=== PATIENT | female | born 1940 | race Caucasian/White ===

== ENCOUNTER → 2016-06-03 | Outpatient (CLI) | payer OTHER ==
[~2016-06-03] MED LIST: ACET-1257 PO; ASPCH81X PO; CZR50 PO; FLV400 PO; METF-384 PO; MGNO400 PO; PLV75 PO; PRVC/40 PO
== END | disposition home or self-care (01) ==
LOC: C.MAMM 10:35
PROVIDERS: ATTEND Internal Medicine
DX: M81.0 Age-related osteoporosis without current pathological fracture (principal); M85.88 Other specified disorders of bone density and structure, other site

== ENCOUNTER → 2016-06-03 | Outpatient (CLI) | payer OTHER ==
--- NOTE | 2016-06-03 10:47 | DIAGNOSTIC IMAGING REPORT ---
THORACIC SPINE 3 VIEWS CLINICAL HISTORY: Chronic thoracic back pain. FINDINGS: AP, lateral, and swimmer's views of the thoracic spine are correlated with CT scan of the thoracic spine dated 06/25/2015. The skeletal structures are osteopenic. Numerous mild to moderate compression deformities are again seen in the midthoracic spine with associated hyperkyphosis. Mild compression deformities are also seen in the lower thoracic region. These have also not appreciably changed from the 06/25/2015 CT scan. No large retropulsed fragment is suspected. The transverse processes and pedicles are grossly intact on the frontal view. There is mild S-shaped thoracolumbar scoliosis. Multilevel degenerative disc space narrowing is observed. There is advanced atherosclerotic calcification of the aorta. Midline sternotomy wires are noted. Chronic fibrotic changes are present in both lungs. Cholecystectomy clips are observed. IMPRESSION: 1. No acute bony abnormality is clearly identified. 2. Osteopenia with numerous compression deformities and kyphoscoliosis is similar to previous. No large retropulsed fragments are identified. 3. Additional findings as above. Electronically signed by: Aman Payne M.D. 06/03/2016 10:46 AM Dictated Date/Time: 06/03/2016 10:44 AM
== END | disposition home or self-care (01) ==
LOC: C.RAD 09:58
PROVIDERS: ATTEND Nurse Practitioner
DX: M54.6 Pain in thoracic spine (principal); M85.88 Other specified disorders of bone density and structure, other site; M81.0 Age-related osteoporosis without current pathological fracture

== ENCOUNTER → 2016-09-01 | Outpatient (CLI) | payer OTHER ==
[2016-09-01 17:26] LABS: BASO ABS # 0.05 K/uL (0-0.2); COMPLETE YES; EOS % 4.4 %; HEMATOCRIT 35.9 % (37-47); IG% 0.2 %; LYMPH % 11.1 %; LYMPH ABS # 0.55 K/uL (1.2-3.4); MEAN CELL VOLUME 98.6 fL (80-100); MEAN CORPUSCULAR HEMOGLOBIN 30.8 pg (25-34); MEAN CORPUSCULAR HGB CONC 31.2 g/dl (32-36); MEAN PLATELET VOLUME 9.4 fL (7.4-10.4); MONO % 8.3 %; PLATELET COUNT 266 K/uL (130-400); RED BLOOD COUNT 3.64 M/uL (4.2-5.4); WHITE BLOOD COUNT 4.95 K/uL (4.8-10.8)
[2016-09-01 17:52] LABS: ALT/SGPT 10 U/L (12-78); AST/SGOT 11 U/L (15-37); BLOOD UREA NITROGEN 21 mg/dl (7-18); BUN/CREATININE RATIO 21.3 (10-20); CALCIUM 9.3 mg/dl (8.5-10.1); CARBON DIOXIDE 30 mmol/L (21-32); CHLORIDE 103 mmol/L (98-107); GLUCOSE 92 mg/dl (70-99); SODIUM 141 mmol/L (136-145)
[2016-09-01 18:05] LABS: ALKALINE PHOSPHATASE 51 U/L (45-117)
[2016-09-02 05:55] LABS: ESTIMATED AVERAGE GLUCOSE 117 mg/dl; HA1C FLAG Normal (Normal)
== END | disposition home or self-care (01) ==
LOC: C.LABBFT 12:32
PROVIDERS: ATTEND Internal Medicine
DX: E11.29 Type 2 diabetes mellitus with other diabetic kidney complication (principal); R06.09 Other forms of dyspnea

== ENCOUNTER → 2016-12-31 | Outpatient (CLI) | payer OTHER ==
[2016-12-31 17:36] LABS: BLOOD UREA NITROGEN 34 mg/dl (7-18); BUN/CREATININE RATIO 26.1 (10-20); CALCIUM 9.9 mg/dl (8.5-10.1); CARBON DIOXIDE 27 mmol/L (21-32); CHLORIDE 101 mmol/L (98-107); GLUCOSE 113 mg/dl (70-99); POTASSIUM 5.1 mmol/L (3.5-5.1); SODIUM 137 mmol/L (136-145)
== END | disposition home or self-care (01) ==
LOC: C.LAB1850 15:49
PROVIDERS: ATTEND Physician Assistant
DX: R06.09 Other forms of dyspnea (principal)

== ENCOUNTER → 2017-01-12 | Outpatient (CLI) | payer OTHER ==
[~2017-01-12] MED LIST changes: +REGADENOSON 0.4 MG/5 ML SYR ONE
--- NOTE | 2017-01-14 14:28 | MYOCARDIAL PERFUSION SCAN ---
ONE-DAY NUCLEAR MEDICINE TECHNETIUM-99M CARDIOLITE MYOCARDIAL PERFUSION SCAN CLINICAL HISTORY: The patient has a known history of coronary artery disease having undergone bypass surgery in 2003. She presents with complaints of exertional dyspnea. COMPARISON: None. TECHNIQUE: For the stress portion of the study, 31.5 mCi of Technetium-99m Cardiolite IV was injected at 12:15 p.m. on 01/12/2017. Thirty minutes following the injection, imaging of the heart was performed in multiple projections. For the rest portion of the study, 10.8 mCi of Technetium-99m Cardiolite was injected IV at 9:45 a.m. One hour following the injection, imaging of the heart was performed in the same projections. For the stress portion of the study, 0.4 mg of Lexiscan was injected intravenously as per protocol. The patient did not experience chest discomfort. There were no EKG changes. Following the study, the patient was hemodynamically stable and without complaints. FINDINGS: The short axis, vertical long axis, horizontal long axis images were reviewed in detail. There is a small fixed defect involving the proximal and mid inferior wall present at both stress and rest. The rotating images suggest that this defect is secondary to arm attenuation. It is unlikely business representative of a prior myocardial infarction. There is no evidence of stress induced myocardial ischemia. The left ventricle demonstrates normal systolic function with an ejection fraction of 68%. Systolic function on the proximal inferior wall cannot be assessed. CONCLUSIONS: 1. No definite scintigraphic evidence of a prior myocardial infarction or stress induced myocardial ischemia. 2. No Lexiscan induced chest pain. 3. No Lexiscan induced EKG changes. 4. Normal left ventricular systolic function with an ejection fraction of 68%.
== END | disposition home or self-care (01) ==
LOC: C.NUCL 09:14
PROVIDERS: ATTEND Internal Medicine Cardiovascular Disease
DX: I25.10 Atherosclerotic heart disease of native coronary artery without angina pectoris (principal); I42.9 Cardiomyopathy, unspecified; R07.89 Other chest pain

== ENCOUNTER 2017-04-03 16:59 | Emergency (ER) | payer OTHER ==
[~2017-04-03] VITALS: Ht 144.8 cm; Wt 61.0 kg
[~2017-04-03 16:59] MED LIST changes: -REGADENOSON 0.4 MG/5 ML SYR ONE
[2017-04-03 17:19] VITALS: TEMP 36.5; Ht 144.8 cm; Wt 61.0 kg
[2017-04-03 17:21] VITALS: O2SAT 98
[2017-04-03] MEDS ORDERED: ONDANSETRON INJ 2 MG/ML 2 ML VIAL IV STA ×2 (17:29→18:26)
[2017-04-03] MEDS ORDERED: KETOROLAC TROMETHAMINE 30 MG/ML VIAL IV STA (17:29)
--- NOTE | 2017-04-03 17:44 | EMERGENCY ROOM VISIT NOTE ---
History Report prepared by Steve: Nevin Jeff Under the Supervision of: Dr. Godwin Alvarez M.D. First contact with patient: 17:16 Chief Complaint: CHEST PAIN Stated Complaint: CHEST PAINS History of Present Illness The patient is a 76 year old female who presents to the Emergency Room with complaints of persistent back pain two nights [employer]. She notes that she tripped when she went to stand up from watching TV. She notes that she fell backward and hit her back on a solid wood foot board. She notes that her back pain is radiating to her chest and left shoulder. She currently rates her pain a 10/10 in severity. She states that her pain is worsened with movement. She notes increased shortness of breath. She notes baseline leg swelling. She reports taking Tylenol to help with the pain, but she is unsure if the Tylenol has made a difference. She has a history of CAD. She denies any leg pain. Her blood pressure is normally low. She denies taking any blood pressure medication. Source of History: patient Onset: two nights SAUSAGE TIER Position: back Symptom Intensity: 10/10 Timing: other (persistent) Modifying Factors (Worsening): movement Associated Symptoms: + chest pain, + back pain (radiating to her left shoulder) Note: She denies any leg pain. Review of Systems See HPI for pertinent positives & negatives. A total of 10 systems reviewed and were otherwise negative. Past Medical & Surgical Medical Problems: (1) Ambulatory dysfunction (2) Anemia (3) Blood pressure check (4) Chest pain (5) Fall (6) Hallucination (7) Hip fracture, right (8) Hypomagnesemia (9) OK (myocardial infarction) (10) Pneumonia (11) Pulmonary embolism (12) Right Femoral Neck Fracture (13) TIA (transient ischemic attack) Surgical Problems: (1) History of cholecystectomy (2) S/P triple vessel bypass (3) Status post LASIK surgery of both eyes Old medical records were reviewed. Nurse's notes were reviewed and I agree with. Family History No significant family history Social History Smoking Status: Unknown if Ever Smoked Alcohol Use: none Drug Use: none Marital Status: Housing Status: lives with family Occupation Status: retired Current/Historical Medications Scheduled Alendronate/Cholecalciferol (Fosamax+D 70MG/2800 Iu), 1 TABLET PO WK Aspirin (Aspirin Chewable), 81 MG PO DAILY Folic Acid (Folic Acid), 400 MCG PO DAILY Losartan Potassium (Losartan Potassium), 50 MG PO DAILY Magnesium Oxide (Magnesium-Oxide), 400 MG PO TID Metformin Hcl (Glucophage), 1,000 MG PO BIDM Pravastatin Sod (Pravastatin Sodium), 40 MG PO QPM Scheduled PRN Acetaminophen (Tylenol Extra Strength), 1,000 MG PO DAILY PRN for Pain Ondansetron Hcl (Zofran), 4 MG PO DIRECTED PRN for Nausea Allergies Coded Allergies: Doxycycline (Verified Allergy, Unknown, Skin peeled, Nausea, 04/03/17) Doxycycline Hyclate Morphine (Unverified Allergy, Unknown, VOMTING,SHAKING, 04/03/17) Magnesium (Verified Adverse Reaction, Intermediate, UPSETS STOMACH, 04/03/17 ) Acetaminophen (Unverified Adverse Reaction, Unknown, HALLUCINATION, ) FROM TAKING 2 TABS TYLENOL EXTRA STRENGTH Chlorzoxazone (Unverified Adverse Reaction, Unknown, HALLUCINATION, ) FROM TAKING 2 TABS TYLENOL EXTRA STRENGTH Hydrocodone (Verified Adverse Reaction, Unknown, SICK TO STOMACH, 04/03/17) Physical Exam Vital Signs Date Time Temp Pulse Resp B/P (MAP) Pulse Ox O2 Delivery O2 Flow Rate FiO2 04/03/17 21:17 88 18 172/88 100 Nasal Cannula 2.0 04/03/17 17:47 86 20 178/92 100 Nasal Cannula 5.0 04/03/17 17:21 98 Nasal Cannula 5.0 04/03/17 17:19 36.5 80 24 193/107 82 Room Air Physical Exam General: Non-ill appearing older female in no acute distress. Complains of back pain and chest pain worse with movement. HEENT: Normal cephalic atraumatic. Pupils are equal round and reactive to light. Extraocular movements are intact. Oropharynx is pink with moist mucous membranes. No swelling of the mouth lips or tongue. Neck: Supple with a midline trachea. No meningeal signs or stiffness, no JVD or bruits. No Stridor. Chest: Clear to auscultation bilaterally. No wheezes or rhonchi. No increased work of breathing. Heart: regular rate and rhythm. Abdomen: Soft nontender, nondistended without rebound guarding or rigidity. Extremities: No cyanosis or clubbing. No calf tenderness or assymetry. Trace pedal edema bilaterally. Spine/Back. Reproducible pain in left posterior thoracic area. No CVA tenderness Skin: Good turgor without rashes. Neurologic exam: Cranial nerves two through 12 are intact. Motor and sensation are intact and symmetrical throughout. Medical Decision & Procedures ER Provider Diagnostic Interpretation: Radiology results as stated below per my review and radiologist interpretation: CHEST ONE VIEW PORTABLE CLINICAL HISTORY: Chest pain. COMPARISON STUDY: Chest radiograph and chest CT February 03, 2016. FINDINGS: There are median sternotomy wires. Cardiomediastinal silhouette is stable. Right hemithorax volume loss is unchanged. Interstitial thickening, greater within the right lung, is unchanged. There is no pneumothorax or pleural effusion. There is no superimposed consolidation. IMPRESSION: No acute cardiopulmonary findings. No change in appearance of the chest with asymmetric right lung interstitial thickening consistent with interstitial lung disease. Electronically signed by: Ryan Ramírez M.D. 04/03/2017 6:11 PM Dictated Date/Time: 04/03/2017 6:08 PM CHEST COMBO ANGIO DISSECTION CLINICAL HISTORY: Chest and back pain. Hypertension. Recent fall. COMPARISON STUDY: Chest CT February 03, 2016 and chest radiograph performed earlier today. TECHNIQUE: Unenhanced and arterial phase imaging of the chest was performed. Injection of 118 cc of Optiray 320 IV was uneventful. Sagittal and coronal reconstructions were viewed as well as maximal intensity projections on an independent 3-D workstation. FINDINGS: There is no evidence for intramural hematoma. No thoracic aortic dissection is present. There is a small hiatal hernia. The heart is moderately enlarged. There is no pericardial effusion. Median sternotomy wires and postsurgical findings consistent with bypass grafting are present. A few prominent mediastinal lymph nodes are unchanged. There is no pneumothorax or pleural effusion. There are acute nondisplaced fractures of the posterior left eighth, ninth and 10th ribs. Old T5, T6, T7, T8 and T9 compression fractures are noted. There is mild traction bronchiectasis within the lungs with multifocal groundglass opacity and subpleural reticulation which is similar to CT of the vertebrae 2016. A few hepatic cysts are noted. There is extensive atherosclerotic plaque of the abdominal aorta and major branch vessels which is partially imaged on this exam. No pulmonary emboli are identified. IMPRESSION: 1. No thoracic aortic dissection. 2. Acute nondisplaced fractures of the posterior left eighth, ninth and 10th ribs. No pneumothorax. Multiple old thoracic spine compression fractures. 3. Moderate cardiomegaly. 4. No significant change in multifocal groundglass opacities with subpleural reticulation and traction bronchiectasis which reflects interstitial lung disease with an NSIP pattern of pulmonary fibrosis. Electronically signed by: Ryan Ramírez M.D. 04/03/2017 8:27 PM Dictated Date/Time: 04/03/2017 8:08 PM Laboratory Results 04/03/17 17:45 Red Blood Count 3.25, Mean Corpuscular Volume 97.5, Mean Corpuscular Hemoglobin 29.5, Mean Corpuscular Hemoglobin Concent 30.3, Mean Platelet Volume 9.3, Neutrophils (%) (Auto) 77.5, Lymphocytes (%) (Auto) 10.2, Monocytes (%) (Auto) 9.2, Eosinophils (%) (Auto) 2.6, Basophils (%) (Auto) 0.5, Neutrophils # (Auto) 5.15, Lymphocytes # (Auto) 0.68, Monocytes # (Auto) 0.61, Eosinophils # (Auto) 0.17, Basophils # (Auto) 0.03 04/03/17 17:45 Test 04/03/17 17:45 White Blood Count 6.64 K/uL (4.8-10.8) Red Blood Count 3.25 M/uL (4.2-5.4) Hemoglobin 9.6 g/dL (12.0-16.0) Hematocrit 31.7 % (37-47) Mean Corpuscular Volume 97.5 fL (80-100) Mean Corpuscular Hemoglobin 29.5 pg (25-34) Mean Corpuscular Hemoglobin Concent 30.3 g/dl (32-36) Platelet Count 261 K/uL (130-400) Mean Platelet Volume 9.3 fL (7.4-10.4) Neutrophils (%) (Auto) 77.5 % Lymphocytes (%) (Auto) 10.2 % Monocytes (%) (Auto) 9.2 % Eosinophils (%) (Auto) 2.6 % Basophils (%) (Auto) 0.5 % Neutrophils # (Auto) 5.15 K/uL (1.4-6.5) Lymphocytes # (Auto) 0.68 K/uL (1.2-3.4) Monocytes # (Auto) 0.61 K/uL (0.11-0.59) Eosinophils # (Auto) 0.17 K/uL (0-0.5) Basophils # (Auto) 0.03 K/uL (0-0.2) RDW Standard Deviation 59.2 fL (36.4-46.3) RDW Coefficient of Variation 16.5 % (11.5-14.5) Immature Granulocyte % (Auto) 0.0 % Immature Granulocyte # (Auto) 0.00 K/uL (0.00-0.02) Prothrombin Time 11.2 SECONDS (9.0-12.0) Prothromb Time International Ratio 1.1 (0.9-1.1) Activated Partial Thromboplast Time 28.7 SECONDS (21.0-31.0) Partial Thromboplastin Ratio 1.1 Anion Gap 3.0 mmol/L (3-11) Est Creatinine Clear Calc Drug Dose 31.6 ml/min Estimated GFR () 54.9 Estimated GFR (Non- 47.3 BUN/Creatinine Ratio 19.5 (10-20) Calcium Level 9.2 mg/dl (8.5-10.1) Total Bilirubin 0.5 mg/dl (0.2-1) Direct Bilirubin 0.2 mg/dl (0-0.2) Aspartate Amino Transf (AST/SGOT) 12 U/L (15-37) Alanine Aminotransferase (ALT/SGPT) 13 U/L (12-78) Alkaline Phosphatase 58 U/L (45-117) Total Creatine Kinase 53 U/L (26-192) Creatine Kinase MB 2.5 ng/ml (0.5-3.6) Creatine Kinase MB Ratio 4.7 (0-3.0) Total Protein 8.1 gm/dl (6.4-8.2) Albumin 3.5 gm/dl (3.4-5.0) Lipase 149 U/L (73-393) Laboratory studies as stated above per my review. Medications Administered Medications (Trade) Dose Ordered Sig/Mira Route Start Time Stop Time Status Last Admin Dose Admin Ondansetron HCl (Zofran Inj) 4 mg NOW STAT IV 04/03/17 17:29 04/03/17 17:31 DC 04/03/17 17:50 4 MG Ketorolac Tromethamine (Toradol Inj) 15 mg NOW STAT IV 04/03/17 17:29 04/03/17 17:31 DC 04/03/17 17:49 15 MG Ondansetron HCl (Zofran Inj) 4 mg NOW STAT IV 04/03/17 18:26 04/03/17 18:33 DC 04/03/17 19:00 4 MG Fentanyl Citrate (Fentanyl Inj) 25 mcg NOW STAT IV 04/03/17 18:26 04/03/17 18:33 DC 04/03/17 19:01 25 MCG ECG Indication: back/shoulder pain Rate (beats per minute): 110 Rhythm: sinus tachycardia Findings: 1st degree AV block, ST depression (Lateral), ST elevation (chronic in L3) Change: no significant change (when compared to 02/04/2016) ED Course 171: Past medical records reviewed. The patient was evaluated in room A9B, and a complete history and physical examination were performed. 1728: Ordered Toradol 15 mg IV and Zofran 4 mg IV 1824: I reassessed the patient at this time. She is still having pain, though is resting comfortably. 1825: Ordered Fentanyl 25 mcg IV and Zofran 4 mg IV 1934: I reassessed the patient at this time. She is feeling better and resting comfortably. 2014: I reassessed the patient at this time. She is resting comfortably. 2049: I reassessed the patient at this time. She is resting comfortably. I discussed the results and treatment plan with the patient. I answered all pertaining questions that she had. She expressed understanding and verbalized agreement. The patient will be discharged home. Medical Decision Differentials include, but are not limited to; musculoskeletal, rib fracture, PNX, PNA, cardiac disease, and arrhythmia. This patient comes in as described above .she fell from a mechanical fall a couple days ago and has pain in her left back. It hurts with movement. She also has some pain in her chest as well is reproducible with movement and palpation. IV access was established was initially given IV Toradol and IV Zofran and this helped a little bit. She was ultimately given fentanyl 25 g IV and felt significantly better. EKG is some chronic changes and no acute ischemic changes when compared her old one. Her cardiac biomarkers are not elevated. Chest x-ray shows chronic findings but nothing acute. She has no pneumothorax or pneumonia or any definite rib fractures seen. Her blood pressure was high although that seems to be coming down with treatment of her pain. I did do a chest CT to rule out aortic dissection or other trauma. She was reassessed frequently. The CAT scan shows no aortic or pulmonary pathology. She does have 3 posterior rib fractures that are nondisplaced. This is likely the cause of her pain. She strongly desires to go home this happened 48 hours ago. I'm going to send her home with incentive spirometer. The family does not think she would do well with narcotics and she is going to use ibuprofen 400 mg every 6 hours, take with food. She can use acetaminophen/ Tylenol for breakthrough pain but ensure that she does not exceed 1 extra strength Tylenol or 500 mg every 6 hours. I encouraged her to have close follow -up with her regular doctor in 1-2 days for recheck or return to ER if: Increasing pain, worsening of symptoms, fever or chills, any problems or concerns. Family was happy with the plan and she was discharged home Medication Reconcilliation Current Medication List: was personally reviewed by me Blood Pressure Screening Patient's blood pressure: Elevated blood pressure Blood pressure disposition: Elevated BP felt to be situational Impression Primary Impression: Rib fracture Additional Impression: Chest pain Scribe Attestation The scribe's documentation has been prepared under my direction and personally reviewed by me in its entirety. I confirm that the note above accurately reflects all work, treatment, procedures, and medical decision making performed by me. Departure Information Dispostion Home / Self-Care Referrals No Doctor, Assigned (PCP) Forms Call Back Authorization, HOME CARE DOCUMENTATION FORM, IMPORTANT VISIT INFORMATION Patient Instructions My [facility] Additional Instructions Rest. Plenty of fluids. May use ibuprofen 400 mg every 6 hours. Take with food May also use acetaminophen/Tylenol a maximum of 500 mg(1 extra strength) every 6 hours as needed. Do not exceed this dose and by and do not take with other medications that contain acetaminophen/Tylenol Return if: Increasing pain, worsening of symptoms, shortness of breath, fever or chills, any new problems or concerns Use incentive spirometer and take several deep breaths an hour Follow-up with your doctor in 1-2 days for recheck Problem Qualifiers Primary Impression: Rib fracture Rib fracture type: multiple ribs Fracture type: closed Laterality: left
[2017-04-03 17:51] LABS: BASO % 0.5 %; BASO ABS # 0.03 K/uL (0-0.2); EOS % 2.6 %; EOS ABS # 0.17 K/uL (0-0.5); HEMATOCRIT 31.7 % (37-47); HEMOGLOBIN 9.6 g/dL (12.0-16.0); LYMPH % 10.2 %; LYMPH ABS # 0.68 K/uL (1.2-3.4); MEAN CELL VOLUME 97.5 fL (80-100); MEAN CORPUSCULAR HEMOGLOBIN 29.5 pg (25-34); MEAN CORPUSCULAR HGB CONC 30.3 g/dl (32-36); MEAN PLATELET VOLUME 9.3 fL (7.4-10.4); MONO % 9.2 %; MONO ABS # 0.61 K/uL (0.11-0.59); NEUT % 77.5 %; NEUT ABS # 5.15 K/uL (1.4-6.5); PLATELET COUNT 261 K/uL (130-400); RED CELL DISTRIBUTION WIDTH CV 16.5 % (11.5-14.5); RED CELL DISTRIBUTION WIDTH SD 59.2 fL (36.4-46.3); WHITE BLOOD COUNT 6.64 K/uL (4.8-10.8)
[2017-04-03 18:07] LABS: INR 1.1 (0.9-1.1); PTT PATIENT 28.7 SECONDS (21.0-31.0)
--- NOTE | 2017-04-03 18:12 | DIAGNOSTIC IMAGING REPORT ---
CHEST ONE VIEW PORTABLE CLINICAL HISTORY: Chest pain. COMPARISON STUDY: Chest radiograph and chest CT February 03, 2016. FINDINGS: There are median sternotomy wires. Cardiomediastinal silhouette is stable. Right hemithorax volume loss is unchanged. Interstitial thickening, greater within the right lung, is unchanged. There is no pneumothorax or pleural effusion. There is no superimposed consolidation. IMPRESSION: No acute cardiopulmonary findings. No change in appearance of the chest with asymmetric right lung interstitial thickening consistent with interstitial lung disease. Electronically signed by: Ryan Ramírez M.D. 04/03/2017 6:11 PM Dictated Date/Time: 04/03/2017 6:08 PM
[2017-04-03 18:20] LABS: ALBUMIN 3.5 gm/dl (3.4-5.0); CALCIUM 9.2 mg/dl (8.5-10.1); CREATININE 1.12 mg/dl (0.60-1.20); POTASSIUM 4.5 mmol/L (3.5-5.1)
[2017-04-03 18:25] LABS: CKMB 2.5 ng/ml (0.5-3.6); TOTAL PROTEIN 8.1 gm/dl (6.4-8.2)
[2017-04-03] MEDS ORDERED: FENTANYL CITRATE INJ 50 MCG/1 ML 2 ML VIAL IV STA (18:26)
[2017-04-03] MEDS ORDERED: ONDA4TAB46 PO (18:30)
[2017-04-03] MEDS ORDERED: FSMD/70 PO (18:30)
[2017-04-03] MEDS ORDERED: OPTIRAY 320 IV PRN (18:45)
--- NOTE | 2017-04-03 20:28 | DIAGNOSTIC IMAGING REPORT ---
CHEST COMBO ANGIO DISSECTION CLINICAL HISTORY: Chest and back pain. Hypertension. Recent fall. COMPARISON STUDY: Chest CT February 03, 2016 and chest radiograph performed earlier today. TECHNIQUE: Unenhanced and arterial phase imaging of the chest was performed. Injection of 118 cc of Optiray 320 IV was uneventful. Sagittal and coronal reconstructions were viewed as well as maximal intensity projections on an independent 3-D workstation. FINDINGS: There is no evidence for intramural hematoma. No thoracic aortic dissection is present. There is a small hiatal hernia. The heart is moderately enlarged. There is no pericardial effusion. Median sternotomy wires and postsurgical findings consistent with bypass grafting are present. A few prominent mediastinal lymph nodes are unchanged. There is no pneumothorax or pleural effusion. There are acute nondisplaced fractures of the posterior left eighth, ninth and 10th ribs. Old T5, T6, T7, T8 and T9 compression fractures are noted. There is mild traction bronchiectasis within the lungs with multifocal groundglass opacity and subpleural reticulation which is similar to CT of the vertebrae 2016. A few hepatic cysts are noted. There is extensive atherosclerotic plaque of the abdominal aorta and major branch vessels which is partially imaged on this exam. No pulmonary emboli are identified. IMPRESSION: 1. No thoracic aortic dissection. 2. Acute nondisplaced fractures of the posterior left eighth, ninth and 10th ribs. No pneumothorax. Multiple old thoracic spine compression fractures. 3. Moderate cardiomegaly. 4. No significant change in multifocal groundglass opacities with subpleural reticulation and traction bronchiectasis which reflects interstitial lung disease with an NSIP pattern of pulmonary fibrosis. Electronically signed by: Ryan Ramírez M.D. 04/03/2017 8:27 PM Dictated Date/Time: 04/03/2017 8:08 PM
[2017-04-03 21:17] VITALS: BP 172/88; PULSE 88; O2SAT 100
== END 2017-04-03 21:26 | disposition home or self-care (01) ==
LOC: C.EDB 17:00 → C.EDA 21:26
DX: S22.42XA Multiple fractures of ribs, left side, initial encounter for closed fracture (principal); W01.0XXA Fall on same level from slipping, tripping and stumbling without subsequent striking against object, initial encounter; R07.9 Chest pain, unspecified; D64.9 Anemia, unspecified; E83.42 Hypomagnesemia; I44.0 Atrioventricular block, first degree; I25.2 Old myocardial infarction; Z86.711 Personal history of pulmonary embolism; Z79.82 Long term (current) use of aspirin; Z79.84 Long term (current) use of oral hypoglycemic drugs; Y92.009 Unspecified place in unspecified non-institutional (private) residence as the place of occurrence of the external cause

== ENCOUNTER → 2017-05-17 | Outpatient (CLI) | payer OTHER ==
[~2017-05-17] MED LIST changes: +FSMD/70 PO; +ONDA4TAB46 PO; -PLV75 PO
--- NOTE | 2017-05-17 14:34 | DIAGNOSTIC IMAGING REPORT ---
VIDEO SWALLOW CLINICAL HISTORY: Interstitial lung disease. Vomiting. COMPARISON STUDY: No previous studies for comparison. Fluoroscopy time: 2.5 minutes. FINDINGS: No aspiration was identified within liquids, nectar thick liquids, hiding, pudding or crackers with paste. Epiglottic inversion and laryngeal elevation were normal. Note was made of at least moderate esophageal dysmotility. IMPRESSION: 1. Intact swallowing mechanism. No tracheal aspiration. 2. Moderate esophageal dysmotility. Electronically signed by: Ryan Ramírez M.D. 05/17/2017 2:33 PM Dictated Date/Time: 05/17/2017 2:20 PM
--- NOTE | 2017-05-17 16:44 | SWALLOWING EVALUATION ---
REFERRING SPEECH PATHOLOGIST: n/a HISTORY: This 77 year-old female was referred for a VFSS at [facility] in order to rule out aspiration as contributing to her dependence on O2. The patient has a PMH significant for pneumonia, Lyme disease, TIA and dizziness. Currently the patient's diet level is regular. She states the only time she coughs is at night in bed at times. PROCEDURE: The patient was seen in the Radiology Department of [facility] for the VFSS. Cursory examination of the oral cavity revealed upper dentures that fit well and sparse natural lower dentition. Movement of the articulators was WNL. The patient was seated upright in a wheelchair and was viewed in both the Anterior-Posterior (A-P) and Lateral planes. Volitional phonation exercises completed in the A-P plane revealed bilateral vocal fold movement and vocal intensity within functional limits. In the lateral plane, the patient was given the following boluses: 1 tsp. thin liquid barium x 2, single swallow thin liquid barium self-presented from a cup, sequential swallows of thin liquid barium self-presented from a cup, 1 tsp. nectar-thick liquid barium, single swallow nectar-thick liquid barium self-presented from a cup, 1 tsp. barium pudding, and 1 club cracker with barium pudding. The patient was then repositioned into the A-P plane and given 1 tsp. barium pudding. RESULTS: Oral Stage: No interlabial bolus escape. Bolus escape to the floor of the mouth when attempting to hold thin liquid between tongue and palate. Mastication and lingual motion for bolus transfer were timely and efficient given the patient's lack of lower dentition. There were collections of contrast retained on the tongue after the initial swallow of solid boluses. These cleared easily with a second swallow. The pharyngeal swallow was initiated latently when the bolus head was in the pyriform sinuses. Oral stage of the swallow considered WNL. Pharyngeal Stage: Velar elevation, laryngeal elevation, anterior hyoid excursion, epiglottic inversion, laryngeal vestibular closure were all complete. Pharyngeal stripping wave present and pharyngeal contraction complete. Adequate distention and duration of PES opening. No bolus between tongue base and pharyngeal wall. No pharyngeal bolus retention. There was no penetration or aspiration during this study. The pharyngeal swallow was WNL. Esophageal Stage: A pudding bolus transited the esophagus without impedance. SUMMARY/RECOMMENDATIONS: This patient presents with normal oral-pharyngeal swallow mechanics. There is no aspiration contributing to the patient's dependence on O2. The following is recommended: 1. Diet as tolerated 2. No further f/u for swallowing is needed. A summary of the results and recommendations was discussed with the patient and her granddaughter immediately following the study. They verbalized understanding. Thank you for referral of this patient. Please contact me at if any additional information is needed.
== END | disposition home or self-care (01) ==
LOC: C.RAD 13:21
PROVIDERS: ATTEND Physician Assistant
DX: J84.9 Interstitial pulmonary disease, unspecified (principal); K22.4 Dyskinesia of esophagus

== ENCOUNTER 2017-06-17 15:10 | Emergency (ER) | payer OTHER ==
[~2017-06-17] VITALS: Ht 152.4 cm; Wt 55.0 kg
[2017-06-17 15:21] VITALS: TEMP 36.8; Ht 152.4 cm; Wt 55.0 kg
--- NOTE | 2017-06-17 16:08 | EMERGENCY ROOM VISIT NOTE ---
History Report prepared by Steve: Ludmila Hernandez Under the Supervision of: Dr. Chava Little M.D. First contact with patient: 15:42 Chief Complaint: SHORTNESS OF BREATH Stated Complaint: REFERRED BY HOME HEALTH, RESP. ASSESSMENT Nursing Triage Summary: Patient with SOB and crackles. On Lasix history of CHF on 5 L NC at home. History of Present Illness The patient is a 77 year old female who presents to the Emergency Room with complaints of worsening shortness of breath. The patient states she does not feel more short of breath when she lays down. Per daughter, the home health nurse said the patient had crackles in her lungs and thought she should get further assessed. The patient wears 5 liters of oxygen at baseline. The patient reports when she walks her oxygen level drops. She states she is trying to get a concentrator so she can turn her 5 liters up for when she walks. She reports increased swelling in her legs and increased urinary frequency. The patient is not on any blood thinners. She takes 80 mg of Lasix daily. Source of History: patient Position: other (generalized) Quality: other (shortness of breath) Timing: worsening Modifying Factors (Worsening): other (ambulating) Modifying Factors (Relieving): other (none) Associated Symptoms: + SOB Review of Systems See HPI for pertinent positives and negatives. A total of ten systems were reviewed and were otherwise negative. Past Medical & Surgical Medical Problems: (1) Ambulatory dysfunction (2) Anemia (3) Blood pressure check (4) Chest pain (5) Fall (6) Hallucination (7) Hip fracture, right (8) Hypomagnesemia (9) UT (myocardial infarction) (10) Pneumonia (11) Pulmonary embolism (12) Right Femoral Neck Fracture (13) TIA (transient ischemic attack) Surgical Problems: (1) History of cholecystectomy (2) S/P triple vessel bypass (3) Status post LASIK surgery of both eyes Family History No significant family history Social History Smoking Status: Never Smoker Alcohol Use: none Drug Use: none Marital Status: Housing Status: lives with family Occupation Status: retired Current/Historical Medications Scheduled Alendronate/Cholecalciferol (Fosamax+D 70MG/2800 Iu), 1 TABLET PO WK Aspirin (Aspirin Chewable), 81 MG PO DAILY Bumetanide (Bumex), 1 TAB PO DAILY Folic Acid (Folic Acid), 400 MCG PO DAILY Furosemide (Lasix), 40 MG PO BID Losartan Potassium (Losartan Potassium), 50 MG PO DAILY Magnesium Oxide (Magnesium-Oxide), 400 MG PO TID Metformin Hcl (Glucophage), 1,000 MG PO BIDM Potassium Chloride Microencaps (Potassium Chloride Er), 1 TAB PO DAILY Pravastatin Sod (Pravastatin Sodium), 40 MG PO QPM Scheduled PRN Acetaminophen (Tylenol Extra Strength), 1,000 MG PO DAILY PRN for Pain Levalbuterol Tartrate (Levalbuterol Tartrate Hfa), 2 PUFF INH Q4 PRN for Shortness of Breath Ondansetron Hcl (Zofran), 8 MG PO DIRECTED PRN for Nausea Allergies Coded Allergies: Doxycycline (Verified Allergy, Unknown, Skin peeled, Nausea, 06/17/17) Doxycycline Hyclate Morphine (Unverified Allergy, Unknown, VOMTING,SHAKING, 06/17/17) Magnesium (Verified Adverse Reaction, Intermediate, UPSETS STOMACH, ) Acetaminophen (Unverified Adverse Reaction, Unknown, HALLUCINATION, ) FROM TAKING 2 TABS TYLENOL EXTRA STRENGTH Chlorzoxazone (Unverified Adverse Reaction, Unknown, HALLUCINATION, ) FROM TAKING 2 TABS TYLENOL EXTRA STRENGTH Hydrocodone (Verified Adverse Reaction, Unknown, SICK TO STOMACH, 06/17/17) Physical Exam Vital Signs Date Time Temp Pulse Resp B/P (MAP) Pulse Ox O2 Delivery O2 Flow Rate FiO2 06/17/17 19:55 98 18 158/66 93 06/17/17 18:09 85 20 150/92 100 Nebulizer 5.0 06/17/17 16:23 83 06/17/17 16:12 100 Nasal Cannula 5.0 06/17/17 15:27 Nasal Cannula 5.0 06/17/17 15:26 Nasal Cannula 5.0 06/17/17 15:21 36.8 89 20 168/91 95 Nasal Cannula 5.0 Physical Exam GENERAL: Awake, alert, chronically ill-appearing, in no distress HENT: Normocephalic, atraumatic. Oropharynx unremarkable. Dry mucus membranes. EYES: Normal conjunctiva. Sclera non-icteric. NECK: Supple. No nuchal rigidity. FROM. No JVD. RESPIRATORY: Diminished breath sounds at the bases with intermittent rhonchi. CARDIAC: Regular rate, normal rhythm. Extremities warm and well perfused. Pulses equal. ABDOMEN: Soft, non-distended. No tenderness to palpation. No rebound or guarding. No masses. RECTAL: Deferred. MUSCULOSKELETAL: Chest examination reveals no tenderness. The back is symmetrical on inspection without obvious abnormality. There is no CVA tenderness to palpation. No joint edema. LOWER EXTREMITIES: Calves are equal size bilaterally and non-tender. 2+ lower extremity edema, no erythema or warmth. No discoloration. NEURO: Normal sensorium. No sensory or motor deficits noted. SKIN: No rash or jaundice noted. Medical Decision & Procedures ER Provider Diagnostic Interpretation: Radiology results as stated below per my review and radiologist interpretation: CHEST ONE VIEW PORTABLE FINDINGS: Moderate cardiomegaly. Prior median sternotomy. Bilateral chronic interstitial fibrotic change. No evidence for superimposed infiltrate. Chronic elevation right hemidiaphragm. IMPRESSION: Diffuse bilateral chronic parenchymal fibrosis. Moderate stable cardiomegaly. No acute process The above report was generated using voice recognition software. It may contain grammatical, syntax or spelling errors. Electronically signed by: Cristian Eid M.D. Laboratory Results 06/17/17 16:20 Red Blood Count 2.78, Mean Corpuscular Volume 100.7, Mean Corpuscular Hemoglobin 31.7, Mean Corpuscular Hemoglobin Concent 31.4, Mean Platelet Volume 9.0, Neutrophils (%) (Auto) 81.7, Lymphocytes (%) (Auto) 8.1, Monocytes (%) ( Auto) 8.0, Eosinophils (%) (Auto) 1.7, Basophils (%) (Auto) 0.4, Neutrophils # ( Auto) 5.94, Lymphocytes # (Auto) 0.59, Monocytes # (Auto) 0.58, Eosinophils # ( Auto) 0.12, Basophils # (Auto) 0.03 06/17/17 16:20 Test 06/17/17 15:25 06/17/17 16:20 06/17/17 17:54 Urine Color YELLOW Urine Appearance CLEAR (CLEAR) Urine pH 5.5 (4.5-7.5) Urine Specific [place] 1.012 (1.000-1.030) Urine Protein TRACE (NEG) Urine Glucose (UA) NEG (NEG) Urine Ketones NEG (NEG) Urine Occult Blood NEG (NEG) Urine Nitrite NEG (NEG) Urine Bilirubin NEG (NEG) Urine Urobilinogen NEG (NEG) Urine Leukocyte Esterase NEG (NEG) Urine WBC (Auto) 1-5 /hpf (0-5) Urine RBC (Auto) 0-4 /hpf (0-4) Urine Hyaline Casts (Auto) 1-5 /lpf (0-5) Urine Epithelial Cells (Auto) 20-30 /lpf (0-5) Urine Bacteria (Auto) NEG (NEG) White Blood Count 7.27 K/uL (4.8-10.8) Red Blood Count 2.78 M/uL (4.2-5.4) Hemoglobin 8.8 g/dL (12.0-16.0) Hematocrit 28.0 % (37-47) Mean Corpuscular Volume 100.7 fL (80-100) Mean Corpuscular Hemoglobin 31.7 pg (25-34) Mean Corpuscular Hemoglobin Concent 31.4 g/dl (32-36) Platelet Count 244 K/uL (130-400) Mean Platelet Volume 9.0 fL (7.4-10.4) Neutrophils (%) (Auto) 81.7 % Lymphocytes (%) (Auto) 8.1 % Monocytes (%) (Auto) 8.0 % Eosinophils (%) (Auto) 1.7 % Basophils (%) (Auto) 0.4 % Neutrophils # (Auto) 5.94 K/uL (1.4-6.5) Lymphocytes # (Auto) 0.59 K/uL (1.2-3.4) Monocytes # (Auto) 0.58 K/uL (0.11-0.59) Eosinophils # (Auto) 0.12 K/uL (0-0.5) Basophils # (Auto) 0.03 K/uL (0-0.2) RDW Standard Deviation 59.6 fL (36.4-46.3) RDW Coefficient of Variation 16.3 % (11.5-14.5) Immature Granulocyte % (Auto) 0.1 % Immature Granulocyte # (Auto) 0.01 K/uL (0.00-0.02) Macrocytosis PRESENT Prothrombin Time 12.0 SECONDS (9.0-12.0) Prothromb Time International Ratio 1.1 (0.9-1.1) Anion Gap 7.0 mmol/L (3-11) Est Creatinine Clear Calc Drug Dose 27.8 ml/min Estimated GFR () 45.5 Estimated GFR (Non- 39.3 BUN/Creatinine Ratio 23.2 (10-20) Calcium Level 8.7 mg/dl (8.5-10.1) Magnesium Level 1.4 mg/dl (1.8-2.4) Total Bilirubin 0.7 mg/dl (0.2-1) Direct Bilirubin 0.3 mg/dl (0-0.2) Aspartate Amino Transf (AST/SGOT) 21 U/L (15-37) Alanine Aminotransferase (ALT/SGPT) 14 U/L (12-78) Alkaline Phosphatase 70 U/L (45-117) Troponin I 0.040 ng/ml (0-0.045) Pro-B-Type Natriuretic Peptide 69977 pg/ml (0-1800) Total Protein 7.6 gm/dl (6.4-8.2) Albumin 3.6 gm/dl (3.4-5.0) Lipase 192 U/L (73-393) Venous Blood pH 7.42 (7.36-7.41) Venous Blood Partial Pressure CO2 73 mmHg (38.0-50.0) Venous Blood Partial Pressure O2 22 mmHg Venous Blood HCO3 47 mmol/L Venous Blood Oxygen Saturation < 60.0 % Venous Blood Base Excess 19.8 mEq/L Laboratory results reviewed by me Medications Administered Medications (Trade) Dose Ordered Sig/Mira Route Start Time Stop Time Status Last Admin Dose Admin Furosemide (Lasix Inj) 80 mg NOW STAT IV 06/17/17 17:28 06/17/17 17:32 DC 06/17/17 18:04 80 MG Albuterol/ Ipratropium (Duoneb) 3 ml NOW STAT INH 06/17/17 17:28 06/17/17 17:32 DC 06/17/17 18:03 3 ML Bumetanide (Bumex Tab) 2 mg NOW STAT PO 06/17/17 18:53 06/17/17 18:55 DC 06/17/17 18:53 2 MG Potassium Chloride (Klor-Con M10) 40 meq NOW STAT PO 06/17/17 18:55 06/17/17 18:57 DC 3/23/18 18:55 40 MEQ Albuterol (Ventolin Hfa Inhaler) 2 puffs NOW STAT INH 06/17/17 19:07 06/17/17 19:10 DC 06/17/17 19:07 2 PUFFS ECG Per My Interpretation Indication: SOB/dyspnea Rate (beats per minute): 79 Rhythm: atrial fibrillation Findings: LPFB, PVC, RBBB (incomplete), no acute ischemic change, other ( normal axis) Comparison ECG Date: 03/13/18 Change: atrial fibrillation replaces sinus rhythm. ED Course 154: The patient was evaluated in room C11B. A complete history and physical exam was performed. Medical Decision I reviewed the patient's past medical history, medications, and the nursing notes as described above. Differential diagnosis: Etiologies such as infections, reactive airway disease, pneumonia, pneumothorax , COPD, CHF, cardiac ischemia, pulmonary embolism, musculoskeletal, gastrointestinal, as well as others were entertained. The patient is a 77-year-old woman with a past medical history of systolic and diastolic heart failure, Paroxysmal afib not on AC 2/ fall risk followed by Dr. Ziegler, interstitial lung disease followed by Dr. Blanco on 5 L home oxygen at baseline who presents to the emergency department with worsening shortness of breath with exertion per hpi. Rather the patient is chronically ill-appearing but in no acute distress, afebrile stable vital signs. On exam, the patient has diminished breath sounds at the bases with scant intermittent rhonchi and wheezes. EKG afib, no acute ischemia. WBC within normal limits. BNP 15,000 however no recent value for comparison. Despite this, the patient's chest x-ray does not appear significantly changed from March. Also, the patient has been stable on her 5 L of oxygen here in the ED. I discussed the case with Dr. Marinelli, [facility] cardiology director educational radio, who agrees that given the patient is not far from her recent baseline it is reasonable to manage the patient as outpatient. Recommends a trial of Bumex to see if the patient diuresis more effectively. Patient already has a follow-up appointment scheduled for Tuesday. Otherwise, the patient does have elevated CO2 however with normal pH suggesting likely chronic hypercapnia in the setting of her interstitial lung disease. Given the patient's recent course of prednisone resulting in fluid overload will defer steroids at this time. Patient encouraged to take her Xopenex as directed. Patient reports that she was given this inhaler 3 weeks ago but does not know how to use it and so has not used it. Thus patient was given MDI with teaching in the ED. Findings and plan for follow-up reviewed with patient. Patient agreeable and d/c'd per discharge instructions. Medication Reconcilliation Current Medication List: was personally reviewed by me Consults Time Called: 06:30 Consulting Physician: Dr. Marinelli Returned Call: 06:40 Agrees with outpatient management. Recommends trial of Bumex and daily potassium supplementation. Impression Primary Impression: Congestive heart failure Additional Impression: Chronic obstructive pulmonary disease Scribe Attestation The scribe's documentation has been prepared under my direction and personally reviewed by me in its entirety. I confirm that the note above accurately reflects all work, treatment, procedures, and medical decision making performed by me. Departure Information Dispostion Home / Self-Care Prescriptions Potassium Chloride Microencaps (POTASSIUM CHLORIDE ER) 20 Meq Tab 1 TAB PO DAILY for 30 Days, #30 TAB Prov: Chava Little M.D. 06/17/17 Bumetanide (BUMEX) 2 Mg Tab 1 TAB PO DAILY for 15 Days, #15 TAB 5 Refills Prov: Chava Little M.D. 06/17/17 Referrals Elijah Hernández M.D. (PCP) Shyam Ziegler M.D. Joshua Blanco MD Patient Instructions COPD, Congestive Heart Failure -[facility], [facility] Additional Instructions Please follow up with your validation software facilitator, Dr. Ziegler, on Tuesday as scheduled for re-evaluation. You should also contact your wheel press clerk, Dr. Blanco, for a follow up appointment. Your symptoms are related to your chronic heart failure and lung disease. Begin Bumex 2 mg daily and discontinue your Lasix until reevaluated by your heart failure team. Take daily potassium supplement. Use your inhaler every 4 hours for the next 48 hours. Return to the emergency department for worsening symptoms as described in the accompanying instructions. Problem Qualifiers
[2017-06-17 16:12] VITALS: O2SAT 100
--- NOTE | 2017-06-17 16:17 | DIAGNOSTIC IMAGING REPORT ---
CHEST ONE VIEW PORTABLE CLINICAL HISTORY: CHEST PAIN dyspnea COMPARISON STUDY: 04/03/2017 FINDINGS: Moderate cardiomegaly. Prior median sternotomy. Bilateral chronic interstitial fibrotic change. No evidence for superimposed infiltrate. Chronic elevation right hemidiaphragm. IMPRESSION: Diffuse bilateral chronic parenchymal fibrosis. Moderate stable cardiomegaly. No acute process The above report was generated using voice recognition software. It may contain grammatical, syntax or spelling errors. Electronically signed by: Cristian Eid M.D. 06/17/2017 4:15 PM Dictated Date/Time: 06/17/2017 4:14 PM
[2017-06-17 16:34] LABS: BASO % 0.4 %; BASO ABS # 0.03 K/uL (0-0.2); EOS % 1.7 %; EOS ABS # 0.12 K/uL (0-0.5); HEMOGLOBIN 8.8 g/dL (12.0-16.0); IG# 0.01 K/uL (0.00-0.02); LYMPH % 8.1 %; LYMPH ABS # 0.59 K/uL (1.2-3.4); MEAN CELL VOLUME 100.7 fL (80-100); MEAN CORPUSCULAR HEMOGLOBIN 31.7 pg (25-34); MEAN CORPUSCULAR HGB CONC 31.4 g/dl (32-36); MONO ABS # 0.58 K/uL (0.11-0.59); NEUT % 81.7 %; NEUT ABS # 5.94 K/uL (1.4-6.5); PLATELET COUNT 244 K/uL (130-400); RED CELL DISTRIBUTION WIDTH CV 16.3 % (11.5-14.5); RED CELL DISTRIBUTION WIDTH SD 59.6 fL (36.4-46.3); WHITE BLOOD COUNT 7.27 K/uL (4.8-10.8)
[2017-06-17 16:47] LABS: INR 1.1 (0.9-1.1)
[2017-06-17 17:05] LABS: ALBUMIN 3.6 gm/dl (3.4-5.0); CALCIUM 8.7 mg/dl (8.5-10.1); CREATININE 1.3 mg/dl (0.60-1.20); POTASSIUM 2.9 mmol/L (3.5-5.1); TOTAL PROTEIN 7.6 gm/dl (6.4-8.2)
[2017-06-17] MEDS ORDERED: ALBUT/IPRATROP 3MG/0.5MG NEB 3 ML VIAL INH STA (17:28)
[2017-06-17] MEDS ORDERED: FUROSEMIDE 40 MG/4 ML VIAL IV STA (17:28)
[2017-06-17] MEDS ORDERED: FRS/40 PO (17:53)
[2017-06-17] MEDS ORDERED: LEVA45AE INH (17:53)
[2017-06-17] MEDS ORDERED: BUMETANIDE 1 MG TAB PO STA (18:53)
[2017-06-17] MEDS ORDERED: BUME2TAB3 PO (18:55)
[2017-06-17] MEDS ORDERED: POTA20TA13 PO (18:55)
[2017-06-17] MEDS ORDERED: POTASSIUM CHLORIDE 10 MEQ TABCR PO STA (18:55)
[2017-06-17] MEDS ORDERED: ALBUTEROL HFA 8 GM INHALER INH STA (19:07)
[2017-06-17] MEDS ORDERED: EMPTY 8 DRAM VIAL ONE (19:36)
[2017-06-17 19:55] VITALS: BP 158/66; PULSE 98; O2SAT 93
== END 2017-06-17 19:55 | disposition home or self-care (01) ==
LOC: EDBD 15:10 → C.EDC 15:11
DX: I50.9 Heart failure, unspecified (principal); J44.9 Chronic obstructive pulmonary disease, unspecified; I25.2 Old myocardial infarction; I42.9 Cardiomyopathy, unspecified; Z99.81 Dependence on supplemental oxygen; Z86.711 Personal history of pulmonary embolism; Z79.899 Other long term (current) drug therapy; Z88.8 Allergy status to other drugs, medicaments and biological substances

== ENCOUNTER → 2017-07-13 | Outpatient (CLI) | payer OTHER ==
[~2017-07-13] MED LIST changes: +BUME2TAB3 PO; +FRS/40 PO; +LEVA45AE INH; +POTA20TA13 PO
[2017-07-13 17:02] LABS: BLOOD UREA NITROGEN 46 mg/dl (7-18); CALCIUM 9.3 mg/dl (8.5-10.1); CARBON DIOXIDE 37 mmol/L (21-32); CREATININE 1.61 mg/dl (0.60-1.20); GLUCOSE 128 mg/dl (70-99); POTASSIUM 4.4 mmol/L (3.5-5.1); SODIUM 138 mmol/L (136-145)
== END | disposition home or self-care (01) ==
LOC: C.LAB1850 16:01
PROVIDERS: ATTEND Physician Assistant
DX: I50.43 Acute on chronic combined systolic (congestive) and diastolic (congestive) heart failure (principal)